=== PATIENT | female | born 1940 | race Caucasian/White ===

== ENCOUNTER 2017-11-23 10:36 | Emergency (ER) | payer MEDICARE, OTHER ==
[~2017-11-23] VITALS: Ht 160 cm; Wt 80.0 kg
[~2017-11-23 10:36] MED LIST: ADV50250 IH; ALBU8.5H4 IH; ALPR-624 PO; ASPI-1071 PO; CLOP75TA35 PO; DILT120C94 PO; DRON400T6 PO; DULO-31 PO; FLUT16SP2 NS; HYDR-3965 PO; HYDR12.522 PO; IRBE75TA30 PO; LEVO175T38 PO; LORA-512 PO; RABE20TA25 PO; RIVA10TA PO
[2017-11-23 10:46] VITALS: BP 156/72
[2017-11-23] MEDS ORDERED: CLIN300C85 PO (12:39)
== END 2017-11-23 12:49 | disposition home or self-care (01) ==
LOC: ER 10:37
DX: H00.011 Hordeolum externum right upper eyelid (principal); J44.9 Chronic obstructive pulmonary disease, unspecified; Z98.890 Other specified postprocedural states; Z88.1 Allergy status to other antibiotic agents; Z88.6 Allergy status to analgesic agent; Z88.8 Allergy status to other drugs, medicaments and biological substances; Z79.82 Long term (current) use of aspirin; Z79.899 Other long term (current) drug therapy
CPT/HCPCS: 99283

== ENCOUNTER 2018-11-12 05:51 | Emergency (ER) | payer MEDICARE, OTHER ==
[~2018-11-12] VITALS: Ht 160 cm; Wt 77.3 kg
[~2018-11-12 05:51] MED LIST changes: +CLIN-96 PO
[2018-11-12] MEDS ORDERED: SOTA80TA73 PO (06:18)
[2018-11-12] MEDS ORDERED: LOSA25TA96 PO (06:18)
[2018-11-12] MEDS ORDERED: FLUT1DIS7 INH (06:18)
[2018-11-12] MEDS ORDERED: oxymetazoline 15 ML nasal spray NS ONE (06:35)
[2018-11-12 07:28] LABS: BASOPHILS # (AUTO) 0.1 X10'3 (0-0.2); BASOPHILS % (AUTO) 0.8 % (0-1); EOSINOPHILS # (AUTO) 0.6 X10'3 (0-0.9); HEMATOCRIT 39.3 % (35.0-45.0); HEMOGLOBIN 13.1 g/dl (12.0-16.0); LYMPHOCYTES % (AUTO) 17.4 % (21-51); MEAN CORPUSCULAR HEMOGLOBIN 29.7 PG (27.0-31.0); MEAN CORPUSCULAR HGB CONC 33.3 g/dL (33.0-36.5); MEAN CORPUSCULAR VOLUME 89.4 FL (78-98); MEAN PLATELET VOLUME 7.6 FL (7.4-10.4); MONOCYTES # (AUTO) 0.9 X10'3 (0-0.9); MONOCYTES % (AUTO) 7.6 % (2-12); NEUTROPHILS # (AUTO) 7.8 X10'3 (1.8-7.7); NEUTROPHILS % (AUTO) 69.2 % (42-75); PLATELET COUNT 407 X10'3 (140-440); RED CELL DISTRIBUTION WIDTH 13.2 % (11.5-14.5); WHITE BLOOD COUNT 11.2 X10'3 (4.5-11.0)
[2018-11-12 07:42] LABS: ALANINE AMINOTRANSFERASE 21 U/L (12-78); ALBUMIN 3.3 G/DL (3.4-5.0); ALBUMIN/GLOBULIN RATIO 0.9 (1.1-1.5); ALKALINE PHOSPHATASE 86 IU/L (46-116); ANION GAP 9 (8-16); ASPARTATE AMINO TRANSFERASE 12 U/L (10-37); BILIRUBIN,TOTAL 0.4 MG/DL (0.1-1.0); BLOOD UREA NITROGEN 23 MG/DL (7-18); BUN/CREATININE RATIO 28.4 (6.6-38.0); CALCIUM 9.2 MG/DL (8.5-10.1); CHLORIDE 108 MMOL/L (99-107); CREATININE 0.81 MG/DL (0.40-0.90); GLUCOSE 119 MG/DL (70-104); SODIUM 140 MMOL/L (135-145); TOTAL PROTEIN 6.9 G/DL (6.4-8.2); eGFR 68 ML/MIN
[2018-11-12] MEDS ORDERED: CEPH500C5 PO (07:46)
[2018-11-12] MEDS ORDERED: cephalexin 250mg capsule PO ONE (07:50)
[2018-11-12 08:06] VITALS: BP 162/83
== END 2018-11-12 08:01 | disposition home or self-care (01) ==
LOC: ER 05:52
DX: R04.0 Epistaxis (principal); I25.10 Atherosclerotic heart disease of native coronary artery without angina pectoris; J44.9 Chronic obstructive pulmonary disease, unspecified; E03.9 Hypothyroidism, unspecified; Z95.5 Presence of coronary angioplasty implant and graft; Z98.890 Other specified postprocedural states; Z88.1 Allergy status to other antibiotic agents; Z88.8 Allergy status to other drugs, medicaments and biological substances; Z88.0 Allergy status to penicillin; Z79.82 Long term (current) use of aspirin; Z79.899 Other long term (current) drug therapy
CPT/HCPCS: 30901; 36415; 71045; 80053; 83735; 83880; 84484; 85025; 93005; 99284

== ENCOUNTER 2020-10-12 13:50 | Emergency (ER) | payer MEDICARE, OTHER ==
[~2020-10-12] VITALS: Ht 160 cm; Wt 79.0 kg
[~2020-10-12 13:50] MED LIST changes: -ADV50250 IH; -CLIN-96 PO; +CLOP75TA34 PO; -CLOP75TA35 PO; -DILT120C94 PO; -DRON400T6 PO; -FLUT16SP2 NS; +FLUT1DIS7 INH; -HYDR-3965 PO; -HYDR12.522 PO; -IRBE75TA30 PO; -LORA-512 PO; +LOSA25TA96 PO; -RABE20TA25 PO; -RIVA10TA PO; +SOTA80TA73 PO
[2020-10-12 14:12] VITALS: BP 147/61
== END 2020-10-12 15:19 | disposition left against medical advice (07) ==
LOC: ER 13:51
DX: S51.012A Laceration without foreign body of left elbow, initial encounter (principal); I25.10 Atherosclerotic heart disease of native coronary artery without angina pectoris; J44.9 Chronic obstructive pulmonary disease, unspecified; E03.9 Hypothyroidism, unspecified; Z79.82 Long term (current) use of aspirin; Z79.899 Other long term (current) drug therapy; Z88.0 Allergy status to penicillin; Z88.1 Allergy status to other antibiotic agents; Z88.8 Allergy status to other drugs, medicaments and biological substances; W22.8XXA Striking against or struck by other objects, initial encounter; Y93.89 Activity, other specified; Y92.89 Other specified places as the place of occurrence of the external cause; Y99.8 Other external cause status
CPT/HCPCS: 99281